=== PATIENT | male | born 1995 | race African-American/Black ===

== ENCOUNTER 2017-01-22 13:04 | Emergency (ER) | payer OTHER ==
[2017-01-22 13:27] VITALS: BP 145/91
--- NOTE | 2017-01-22 18:17 | XRay Report ---
FINAL REPORT PROCEDURE: XR SHOULDER 2+V LT TECHNIQUE: Left shoulder, three views HISTORY: left shoulder pain COMPARISON: No prior studies are available for comparison. FINDINGS: No acute fracture or dislocation is seen. No focal osseous lesions are identified IMPRESSION: No acute fracture or dislocation is seen
--- NOTE | 2017-01-22 18:31 | XRay Report ---
FINAL REPORT PROCEDURE: XR SPINE CERVICAL 2-3V TECHNIQUE: Cervical spine, three views HISTORY: neck pain COMPARISON: No prior studies are available for comparison. FINDINGS: The vertebral body heights and alignment are maintained. Prevertebral soft tissues are within normal limits in thickness. The odontoid process is intact. IMPRESSION: No acute osseous abnormality is identified
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
--- NOTE | 2017-01-23 07:52 | XRay Report ---
LUMBOSACRAL SPINE, 3 VIEWS: History: Back pain Findings: The vertebral bodies, disk spaces and posterior elements are intact. No compression deformity or malalignment. The SI joints are symmetric and unremarkable. Impression: 1. No evidence for acute injury to the lumbar spine.
== END 2017-01-22 18:41 | disposition home or self-care (01) ==
LOC: ED 13:04
DX: S43.492A Other sprain of left shoulder joint, initial encounter (principal); V49.49XA Driver injured in collision with other motor vehicles in traffic accident, initial encounter; Y93.89 Activity, other specified; Y92.89 Other specified places as the place of occurrence of the external cause; Y99.8 Other external cause status
CPT/HCPCS: 72040; 72100; 99283